=== PATIENT | female | born 1980 | race Caucasian/White ===

== ENCOUNTER → 2016-05-28 | Outpatient (CLI) | payer OTHER ==
[2016-01-04 19:33] VITALS: BP 129/78
[~2016-05-28] MED LIST: HYDR-79 PO; HYDR1TAB10 PO; METH-37 PO; ORPH100T PO
--- NOTE | 2016-05-28 15:28 | KCIC ---
PROCEDURE Pelvic ultrasound. HISTORY Menorrhagia. TECHNIQUE Transabdominal pelvic ultrasound was performed. Transvaginal imaging also was performed to better evaluate the endometrial stripe and adnexa. COMPARISON None. FINDINGS Uterus measures 8.8 x 5.9 by 4.0 centimeters in size. Endometrial stripe measures 3 millimeters. There is no uterine mass. Both ovaries are visualized with subcentimeter cysts or follicles present. Color flow for each ovary is documented. There is no free pelvic fluid. IMPRESSION Normal pelvic ultrasound. Electronically signed by: Brian Fuller MD (May 28, 2016 15:26:02)
== END | disposition home or self-care (01) ==
LOC: KCIC US 14:05
PROVIDERS: ATTEND Nurse Practitioner Family
DX: N92.0 Excessive and frequent menstruation with regular cycle (principal); N83.292 Other ovarian cyst, left side; N83.291 Other ovarian cyst, right side
CPT/HCPCS: 76830; 76856

== ENCOUNTER → 2016-07-18 | Outpatient (CLI) | payer OTHER ==
[2016-01-04 19:33] VITALS: BP 129/78
--- NOTE | 2016-07-19 08:21 | KCIC ---
PROCEDURE MRI lumbar spine without contrast. HISTORY Lumbar radiculopathy, low back pain, bilateral entire leg pain and stiffness getting worse TECHNIQUE Multiplanar, multi sequential non contrast MR imaging was performed of the lumbar spine. COMPARISON April 11, 2015 FINDINGS Lumbar vertebral body stature is preserved. AP alignment is unchanged, negligible posterior subluxation L5 relative to S1. There is again moderate to severe degenerative disc disease L5-S1, associated degenerative endplate change. There is again mild degenerative disc disease L4-5. Conus terminates normally at T12-L1. Nonspecific edema of the posterior subcutaneous fat of the lower back as seen previously. There is no significant marrow edema. There is posterior annular tear L5-S1. There is again mild levoscoliosis of the inferior lumbar spine. L3-4: Spinal canal and neural foramina are adequate. L4-5: There is mild facet degenerative change and buckling of the ligamentum flavum. Neural foramina and spinal canal are adequate. There is left posterolateral annular tear. L5-S1: There is again broad posterior protrusion more eccentric to the right lateral recess. There is again contact of the descending right S1 nerve root although no significant displacement posteriorly. There is mild right lateral recess stenosis. There is again mild narrowing of the right neural foramen, left neural foramen adequate. IMPRESSION 1. Findings are similar comparing with the 2014 exam. There is again degenerative disc disease greatest at what is considered L5-S1, protrusion at L5-S1 contacting the descending right S1 nerve root without significant displacement. There is similar mild narrowing of the right L5-S1 neural foramen. Electronically signed by: Harlan Miles MD (Jul 19, 2016 08:20:26)
== END | disposition home or self-care (01) ==
LOC: KCIC MRI 17:02
PROVIDERS: ATTEND Nurse Practitioner Family
DX: M48.06 Spinal stenosis, lumbar region (principal); M41.86 Other forms of scoliosis, lumbar region
CPT/HCPCS: 72148

== ENCOUNTER → 2016-09-03 | Outpatient (CLI) | payer OTHER ==
[2016-01-04 19:33] VITALS: BP 129/78
[~2016-09-03] MED LIST changes: +MELO-150 PO; +METF500T4 PO; +NORE1CAP PO; +OXYC5CAP3 PO; +TIZA4TAB PO; +TRAM50TA PO
[2016-09-03 09:47] LABS: BASO # 0.1 x10^3/uL (0.0-0.2); BASO % 1 % (0-3); EOS % 3 % (0-3); HEMATOCRIT 41.7 % (36.0-47.0); HEMOGLOBIN 14.1 g/dL (12.0-15.5); LYMPH # 2.8 x10^3/uL (1.0-4.8); LYMPH % 25 % (24-48); MEAN CORPUSCULAR HEMOGLOBIN 31 pg (25-35); MEAN CORPUSCULAR HGB CONC 34 g/dL (31-37); MEAN CORPUSCULAR VOLUME 92 fL (79-100); MONO % 5 % (0-9); NEUT % 67 % (31-73); PLATELET COUNT 281 x10^3/uL (140-400); RED BLOOD COUNT 4.56 x10^6/uL (3.50-5.40); RED CELL DISTRIBUTION WIDTH 13.5 % (11.5-14.5); WHITE BLOOD COUNT 11.2 x10^3/uL (4.0-11.0)
[2016-09-03 10:08] LABS: ALBUMIN 2.9 g/dL (3.4-5.0); ALBUMIN/GLOBULIN RATIO 0.7 (1.0-1.7); CALCIUM 8.8 mg/dL (8.5-10.1); CREATININE 0.8 mg/dL (0.6-1.0); GFR 82.6; POTASSIUM 4.3 mmol/L (3.5-5.1); TOTAL BILIRUBIN 0.2 mg/dL (0.2-1.0); TOTAL PROTEIN 7.2 g/dL (6.4-8.2)
[2016-09-03 10:10] LABS: INR 0.9 (0.8-1.1)
== END | disposition home or self-care (01) ==
LOC: SURGPAT 08:26
PROVIDERS: ATTEND Neurological Surgery
DX: Z01.812 Encounter for preprocedural laboratory examination (principal)
CPT/HCPCS: 36415; 80053; 85027; 85610; 85730; 87641

== ENCOUNTER 2016-09-04 06:55 | Day surgery (SDC) | payer OTHER ==
[~2016-09-04 06:55] MED LIST changes: +BACITRACIN 50,000 UNIT in IV NORMAL SALINE 1000ML BAG 1,000 ML IRR ONE
[2016-09-04] MEDS ORDERED: GELATIN SPONGE SIZE 100. ONE (06:56)
[2016-09-04] MEDS ORDERED: LIDOCAINE 1%/EPI 1:100,000 20 ML VIAL. ONE (06:56)
[2016-09-04] MEDS ORDERED: BUPIVACAINE 0.5% 50 ML VIAL. ONE (06:56)
[2016-09-04] MEDS ORDERED: THROMBIN TOPICAL 20,000 UNIT SPRAY.SYRN KIT TP ONE (06:56)
[2016-09-04] MEDS ORDERED: PROCHLORPERAZINE 10 MG/2 ML VIAL. IV PRN (07:00)
[2016-09-04] MEDS ORDERED: IV RINGERS,LACTATED 1000ML 1,000 ML IV SCH (07:00)
[2016-09-04] MEDS ORDERED: ONDANSETRON PF 4 MG/2 ML VIAL. IV PRN (07:00)
[2016-09-04] MEDS ORDERED: fentaNYL PF VIAL 100 MCG/2 ML VIAL IV PRN (07:00)
[2016-09-04] MEDS ORDERED: LIDOCAINE 1% 1 ML SYRINGE. ID PRN (07:00)
[2016-09-04] MEDS ORDERED: HYDROmorphone 2 MG/ML VIAL IV PRN (07:00)
[2016-09-04 07:52] LABS: NEG OBC UR NEG; POS OBC UR POS
[2016-09-04] MEDS ORDERED: DESFLURANE > 120 MINUTES IH ONE (07:59)
[2016-09-04] MEDS ORDERED: fentaNYL PF VIAL 100 MCG/2 ML VIAL ONE ×2 (08:00→08:08)
[2016-09-04] MEDS ORDERED: ROCURONIUM 50 MG/5 ML VIAL. ONE (08:00)
[2016-09-04] MEDS ORDERED: MIDAZOLAM HCL/PF 2 MG/2 ML VIAL. ONE (08:00)
[2016-09-04] MEDS ORDERED: REMIFENTANIL 2 MG VIAL. IV ONE ×2 (08:00→08:07)
[2016-09-04] MEDS ORDERED: DEXAMETHASONE SOD PHOS 20 MG/5 ML VIAL. ONE (08:01)
[2016-09-04] MEDS ORDERED: LIDOCAINE 2% 100 MG/5 ML SYRINGE. ONE (08:01)
[2016-09-04] MEDS ORDERED: ONDANSETRON PF 4 MG/2 ML VIAL. ONE (08:01)
[2016-09-04] MEDS ORDERED: MINERAL OIL/PETROLATUM,WHITE OPHTH OINT 3.5GM TUBE. ONE (08:01)
[2016-09-04] MEDS ORDERED: PROPOFOL 20 ML IV ONE (08:01)
[2016-09-04] MEDS ORDERED: 0.9 % SODIUM CHLORIDE 50 ML VIAL. IJ ONE ×2 (08:03→11:03)
[2016-09-04] MEDS ORDERED: PROPOFOL 100 ML IV ONE (08:05)
[2016-09-04] MEDS ORDERED: PHENYLEPHRINE 10 MG/ML VIAL. ONE (09:34)
[2016-09-04] MEDS ORDERED: GLYCOPYRROLATE 1 MG/5 ML VIAL. ONE (10:01)
[2016-09-04] MEDS ORDERED: PROPOFOL 50 ML IV ONE (11:11)
--- NOTE | 2016-09-04 12:13 | PDOC ---
BRIEF OPERATIVE NOTE Date: September 04, 2016 Pre-Op Diagnosis lumbar radiculopathy, herniated disk L5-S1 Post-Op Diagnosis same Procedure Performed right L5-S1 hemilaminotomy with discectomy Surgeon Lauren Inspector [employer]arms none Anesthesia Type: General Blood Loss 100mL Specimens Obtained disk and decompression Findings prominent disk herniation, calcified disk material Complications none apparent Additional Remarks neuromonitoring remained at least baseline throughout the procedure YOLETTE GALAN MD September 04, 2016 12:13
--- NOTE | 2016-09-04 12:17 | DISCH ---
DISCHARGE INSTRUCTIONS Condition on Discharge Condition on Discharge: Stable Activity After Discharge Activity Instructions for Disc: Avoid exertion, Progressive ambulation, Other, see below (avoid strenuous activity, avoid excess bending or twisting, no lifting over 10lbs) Lifting Instructions after Dis: Do not lift >10 pounds Driving Instructions after Dis: No driving for 2 weeks Wound Incision Care Wound/Incision Care: Other, see below (may remove dressing day 3 after surgery ; keep incision clean and dry; do not soak, scrub, or submerge incision) Contacting the after DC Call your doctor for: Concerns you may have Follow-Up Follow up with: Dr. Galan neurosurgery in two weeks [phone] YOLETTE GALAN MD September 04, 2016 12:17
[2016-09-04] MEDS: fentaNYL PF VIAL 100 MCG/2 ML VIAL IV PRN ×4 (12:24→12:44)
[2016-09-04] MEDS: MORPHINE SULFATE 2 MG/ML DISP.SYRIN. IV PRN ×4 (12:47→13:24)
[2016-09-04] MEDS ORDERED: OXYCODONE IR 5 MG TABLET. PO PRN (13:45)
[2016-09-04 13:46] VITALS: BP 123/60
--- NOTE | 2016-09-04 19:10 | OP ---
DATE OF SURGERY: 09/04/2016 SURGEON: Theodore Galan MD. WOOLING MACHINE OPERATOR: None. PREOPERATIVE DIAGNOSIS: Lumbar disk herniation with lumbar radiculopathy. POSTOPERATIVE DIAGNOSIS: Lumbar disk herniation with lumbar radiculopathy. PROCEDURE: Right lumbar 5 and sacral 1 hemilaminotomy with diskectomy with intraoperative use of microscope and intraoperative neuromonitoring. ANESTHESIA: General. COMPLICATIONS: None intraprocedurally. INDICATIONS FOR THE PROCEDURE: The patient is a 35-year-old female who has a history of right greater than left lower extremity pain and was noted to have lumbosacral disk herniation at L5-S1, slightly more prominent to the right. She has been refractory to multiple nonsurgical treatments, and it was felt that surgical decompression maybe of benefit. Please refer to the patient's chart for additional details. DESCRIPTION OF PROCEDURE: After informed consent was obtained, the patient was brought into the operating room. She was placed under general anesthesia, was placed in the prone position on the Carrillo table. All pressure points were checked and padded appropriately. Lumbar region was prepped and draped in the usual sterile fashion. Appropriate incision location was verified with fluoroscopy, and a vertical incision was made centered over the region of lumbar 5-sacral 1. Monopolar electrocautery was utilized to dissect the avascular midline to the spinous processes at this location and rightward across the lamina at this location. Level was verified with fluoroscopy prior to the initiation of decompression. A right hemilaminotomy was performed at the inferior aspect of lumbar 5 with a pneumatic drill as well as Kerrison rongeur. The underlying ligament was gently dissected away from the thecal sac with a Reno and removed with the Kerrison rongeur, and prominent annulus was identified at the disk space of this region, and a small annulotomy was performed with an 11-blade scalpel. ____ was performed. Blunt nerve hook was utilized to gently tease disk material posterolaterally into the lateral recesses. This was subsequently removed with a pituitary rongeur. Portions of disks were noted to be significantly calcified. A plane was developed between the thecal sac, and the annulus and a Carrol as well as a down-biting curette was utilized to the tease this material anteriorly into the disk space and laterally for removal of disk material with a pituitary rongeur. The adjacent nerve root was identified, and disk material was noted around this structure as well. This was gently removed with a blunt nerve hook and a pituitary rongeur. Upon completion of the decompression and diskectomy, the neural elements were noted to be very well decompressed. This was verified with direct visualization as well as gentle palpation with a Reno and a Beckham ball probe. Neuromonitoring potentials were noted to be at least baseline throughout the entire duration of the procedure. Pristine hemostasis was achieved with FloSeal, cottonoids, gentle irrigation, and some use of bipolar electrocautery. The wound was generously irrigated with antibiotic irrigation prior to the final closure. The muscles and fascia were then reapproximated with 0 Vicryl in a simple interrupted fashion. Subcutaneous tissues were reapproximated with 2-0 Vicryl in an interrupted inverted fashion, and the skin was reapproximated with 4-0 Vicryl in a running subcuticular fashion. Mastisol and Steri-Strips were applied, and the wound was dressed with Telfa and Tegaderm. At the end of the procedure, all needle and sponge counts were correct x 2. The patient was extubated in the operating room and taken to recovery in stable condition. There were no intraprocedural complications apparent. THEODORE GALAN MD DR: MIHIR/janiya JOB#: [id number] / [id number]
--- NOTE | 2016-09-05 17:00 | PATHOLOGY ---
PATHOLOGY REPORT * * * * * * * * FINAL DIAGNOSIS: Segments of fibrocartilaginous, fibroadipose, and skeletal muscle tissue and bone, lumbar disc and decompression: - Focal degenerative changes of fibrocartilaginous tissue. COMMENT: There is no evidence of an acute inflammatory process or malignancy. (JPM:csd; d/t: 09/05/2016) REPORT ELECTRONICALLY SIGNED BY: Tin Bahena M.D. DATE/TIME: 09/05/2016 16:59 * * * * * * * * GROSS PATHOLOGY: Received in formalin labeled "Andrea Campo, lumbar disc and decompression" are multiple segments of hirsch, rubbery, and gritty tissue admixed with bone. The specimen measures 5.8 x 5.7 x 0.9 cm in aggregate dimensions. The tissue is submitted representatively in cassette A1, following decalcification. (CAA; 09/04/2016) INITIAL CPT CODE(S): A; 49083, 55569 Professional services performed [place] [facility] [place] [address] Technical services performed by [facility] at [address] [place] [address] [address], [place] [address]. SPECIMEN(S) RECEIVED: A.Lumbar disc and decompression CLINICAL HISTORY: Lumbar herniated disc PATIENT: ANDREA CAMPO /AGE: 509/25/1980 (Age: 35) PATIENT #: [id number] ALT CASE #: SPECIMEN COLLECTION DATE: 09/04/2016 SPECIMEN RECEIVED DATE: 09/04/2016 [facility] - [address] [place] [address] - PHONE: [phone] * * * END OF REPORT * * *
== END 2016-09-04 14:20 | disposition home or self-care (01) ==
LOC: SURG 06:55
PROVIDERS: ATTEND Neurological Surgery
DX: M51.16 Intervertebral disc disorders with radiculopathy, lumbar region (principal); E66.9 Obesity, unspecified; E11.9 Type 2 diabetes mellitus without complications; F41.9 Anxiety disorder, unspecified; F32.9 Major depressive disorder, single episode, unspecified; Z72.89 Other problems related to lifestyle; Z72.0 Tobacco use; Z90.49 Acquired absence of other specified parts of digestive tract
CPT/HCPCS: 63030; 76000; 81025; 82947; 88304; 88311; J0690; J0780; J1100; J2250; J2270; J2405; J2704; J3010; J3490; J7030; J7120

== ENCOUNTER → 2016-10-15 | Day surgery (SDC) | payer OTHER ==
[~2016-10-15] MED LIST changes: -BACITRACIN 50,000 UNIT in IV NORMAL SALINE 1000ML BAG 1,000 ML IRR ONE; +BENZOCAINE ONE 20% MUCOSAL SPRAY.; +HYDROmorphone 2 MG/ML VIAL IV PRN; +IV RINGERS,LACTATED 1000ML 1,000 ML IV SCH; +LIDOCAINE 1% 1 ML SYRINGE. ID PRN; +LIDOCAINE 2% TOPICAL JELLY 30GM TUBE. TP ONE; +LIDOCAINE 2% VISCOUS 15 ML SOLUTION. ONE; -MELO-150 PO; +MELO15TA23 PO; +METH-38 PO; +MORPHINE SULFATE 2 MG/ML DISP.SYRIN. IV PRN; +ONDANSETRON PF 4 MG/2 ML VIAL. IV PRN; +OXYC5CAP PO; -OXYC5CAP3 PO; +PROCHLORPERAZINE 10 MG/2 ML VIAL. IV PRN; +PROPOFOL 40 ML IV ONE; +fentaNYL PF VIAL 100 MCG/2 ML VIAL IV PRN
[2016-10-15 08:01] LABS: NEG OBC UR NEG; POS OBC UR POS
[2016-10-15 10:04] VITALS: BP 137/66
--- NOTE | 2016-10-15 13:28 | CARD ---
APPROVED REPORT EXAM: Two-dimensional and M-mode echocardiogram with Doppler and color Doppler. INDICATION RV MASS Reason For Test : RV MASS PROCEDURE Type of Sedation : Conscious Sedation Sedation was provided by anesthesiologist, see EMR for medications administered. The KARIME was performed without complications. Throughout the procedure, the blood pressure, pulse oximetry, cardiac rhythm, and rate were monitored . The patient tolerated the procedure without adverse effects. Recovery from conscious sedation was une ventful and vital signs were stable. LEFT VENTRICLE The left ventricle is normal size. There is mild concentric left ventricular hypertrophy. The left ve ntricular systolic function is normal. The Ejection Fraction is 60-65%. There is normal LV segmental wall motion. RIGHT VENTRICLE The right ventricle is normal size. There is normal right ventricular wall thickness. The right ventr icular systolic function is normal. There is a mass measuring up to 3.0 x 2.8 x 2.8cm. in the right v entricular apex. Previously, the 08/28/2016 transthoracic echocardiogram documented this mass at 3.4 c m. and does not appear that it has significantly changed in shape or dimension. This mass appears to be attached to septal wall of the right ventricle in the apex level. ATRIA The left atrium size is normal. The right atrium size is normal. The interatrial septum is intact wit h no evidence for an atrial septal defect or patent foramen ovale as noted on 2-D or Doppler imaging. AORTIC VALVE The aortic valve is trileaflet. Doppler and Color Flow revealed no significant aortic regurgitation. There is no significant aortic valvular stenosis. MITRAL VALVE There is no evidence of mitral valve prolapse. There is no mitral valve stenosis. Doppler and Color F low revealed no mitral valve regurgitation noted. TRICUSPID VALVE Doppler and Color Flow revealed trace tricuspid regurgitation. There is no pulmonary hypertension. PULMONIC VALVE Doppler and Color Flow revealed trace pulmonic valvular regurgitation. There is no pulmonic valvular stenosis. GREAT VESSELS The aortic root is normal in size. The ascending aorta is normal in size. The IVC is normal in size a nd collapses >50% with inspiration. PERICARDIAL EFFUSION There is no evidence of significant pericardial effusion. Critical Notification Critical Value: No <Conclusion> The left ventricular systolic function is normal. The Ejection Fraction is 60-65%. There is normal LV segmental wall motion. There is a mobile mass measuring up to 3.0 x 2.8 x 2.8cm. 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 Doppler and Color Flow revealed trace tricuspid regurgitation. There is no evidence of significant pericardial effusion.
== END | disposition home or self-care (01) ==
LOC: SURG 07:39
PROVIDERS: ATTEND Internal Medicine Cardiovascular Disease
DX: I07.1 Rheumatic tricuspid insufficiency (principal); E66.9 Obesity, unspecified; E11.9 Type 2 diabetes mellitus without complications; F41.9 Anxiety disorder, unspecified; F32.9 Major depressive disorder, single episode, unspecified; Z86.69 Personal history of other diseases of the nervous system and sense organs; Z90.49 Acquired absence of other specified parts of digestive tract; Z86.39 Personal history of other endocrine, nutritional and metabolic disease; Z72.0 Tobacco use; Z88.6 Allergy status to analgesic agent; Z88.8 Allergy status to other drugs, medicaments and biological substances
CPT/HCPCS: 81025; 93312; 93325; J2704

== ENCOUNTER → 2016-12-18 | Outpatient (CLI) | payer OTHER ==
[2016-10-15 10:04] VITALS: BP 137/66
[~2016-12-18] MED LIST changes: -BENZOCAINE ONE 20% MUCOSAL SPRAY.; +GADOBUTROL 10 MMOL/10 ML VIAL IV ONE; -HYDROmorphone 2 MG/ML VIAL IV PRN; -IV RINGERS,LACTATED 1000ML 1,000 ML IV SCH; -LIDOCAINE 1% 1 ML SYRINGE. ID PRN; -LIDOCAINE 2% TOPICAL JELLY 30GM TUBE. TP ONE; -LIDOCAINE 2% VISCOUS 15 ML SOLUTION. ONE; -MORPHINE SULFATE 2 MG/ML DISP.SYRIN. IV PRN; -ONDANSETRON PF 4 MG/2 ML VIAL. IV PRN; -PROCHLORPERAZINE 10 MG/2 ML VIAL. IV PRN; -PROPOFOL 40 ML IV ONE; -fentaNYL PF VIAL 100 MCG/2 ML VIAL IV PRN
--- NOTE | 2016-12-18 10:31 | KCIC ---
MR LUMBAR SPINE WITH CONTRAST HISTORY: Right hip and leg pain COMPARISON: MR lumbar spine from July 18, 2016 Technique: Sagittal T2, sagittal STIR, and sagittal T1-weighted images were obtained. Additional axial T1 and T2 weighted imaging was also performed. Sagittal and axial T1-weighted images were obtained after the administration of gadolinium based intravenous contrast material FINDINGS: Alignment and curvature are within normal limits. There is no compression fracture or deformity. There has been performance of a right hemilaminectomy at L5-S1. The previously noted disc protrusion remains present and continues to cause some mass effect upon the descending right S1 nerve. There is also some enhancement in the right foramen which could represent granulation tissue. Correlate for right L5 or S1 radiculopathy symptoms. The remaining disc spaces are well-maintained. IMPRESSION: Postoperative changes from right hemilaminectomy. There is a persistent disc protrusion causing mass effect upon the right S1 nerve in the lateral recess. There has also been development of some enhancing tissue in the right foramen which could represent granulation tissue. This cannot be classified as fibrosis since the procedure has been relatively recent. Correlate for right S1 or L5 radiculopathy symptoms. Electronically signed by: Buddy Holder MD (12/18/2016 10:28 AM) [place] [id number]
--- NOTE | 2016-12-18 12:09 | KCIC ---
MRI study of the right hip with and without contrast Clinical indications: Right hip pain and lumbar radiculopathy. TECHNIQUE: Pre and postcontrast enhanced MRI sequences of the right hip was performed in all 3 planes. A total of 10 cc of Gadavist was given intravenously. COMPARISON: No previous MRI study of the right hip available. FINDINGS: No marrow infiltrative process or bone contusion or fracture or bone marrow edema or avascular necrosis is seen. There is mild degenerative spurring of the right femoral head. No significant joint space narrowing or articular cartilage defect is seen. The acetabular labrum is intact. No paralabral ganglion cyst is seen. No significant right hip joint effusion is seen. No abnormal synovial enhancement is seen. No loose osteochondral body is evident. The iliopsoas tendon is intact and no iliopsoas bursitis is seen. The conjoined hamstring tendon is intact and no ischial tuberosity bursitis is seen. There is mild tendinosis of the gluteus grisel tendon at the level of the greater trochanter. There is mild tendinosis of the gluteus minimus tendon at the level of the greater trochanter. No greater trochanteric bursitis is seen. No muscle edema is evident. No soft tissue mass or abscess is seen. No abnormal soft tissue enhancement is seen. Coronal STIR sequence of both hips was performed for comparison. No avascular necrosis of the opposite left femoral head is seen. No marrow edema of the upper portion of the sacrum is seen on either side. Incidental note is made of a 2.1 cm right ovarian cyst. IMPRESSION: Mild tendinosis of the gluteus grisel and gluteus minimus tendons. Mild degenerative spurring of the right femoral head without significant joint effusion. No enhancing synovitis of the right hip joint is seen. No other significant MRI abnormality of the right hip is seen otherwise. Electronically signed by: Fernie Marques MD (12/18/2016 12:06 PM) [facility]-KC[facility]
== END | disposition home or self-care (01) ==
LOC: KCIC MRI 07:59
PROVIDERS: ATTEND Neurological Surgery
DX: M54.16 Radiculopathy, lumbar region (principal); M25.551 Pain in right hip
CPT/HCPCS: 72158; 73723; 82565; A9585

== ENCOUNTER → 2017-01-18 | Outpatient (CLI) | payer OTHER ==
[2016-10-15 10:04] VITALS: BP 137/66
[~2017-01-18] MED LIST changes: -GADOBUTROL 10 MMOL/10 ML VIAL IV ONE
--- NOTE | 2017-01-18 13:28 | PAIN ---
DATE OF SERVICE: 01/18/2017 CHIEF COMPLAINT: Low back and right lower extremity pain. HISTORY OF PRESENT ILLNESS: This is a 36-year-old female who presents with history of pain for about 5 years, low back, right lower extremity, sometimes in the left, mostly in the right. The patient had a lumbar laminectomy and partial diskectomy at L5-S1 in September of this year about 4 months ago. The patient reports that she did well initially, but the pain returned fairly quickly several weeks after the surgery, again low back and right leg, posterior gluteus, posterior thigh, posterior calf, radiating in an L5-S1 distribution on the right side, occasionally in L5 especially on the left but almost always on the right. The patient reports it awakens her from sleep about 3-4 times a night, it does not affect her bowel or bladder control, it does not affect her ability to walk. She is not using any assisted devices; however, she has tried physical therapy and did 6 weeks of this following in the last month and a half which helped a very small amount and was becoming more difficult towards the end of the therapy. She is still doing some exercises at home and continues to do these with some stretching which she feels helps her back to some extent. She has been taking tramadol as well as oxycodone which is not helping the pain significantly, also [id number] ibuprofen which is not significantly helpful as well. The patient reports her disability rate from 0-10, 10 being the worst; is 9 with family and home responsibilities, occupation; 8 with sexual behaviors, self-care and life support activities; 6 with social activity and recreation. The patient did have her MRI scan since her surgery dated 10/18/2016 showing postoperative changes and right hemilaminectomy with persistent disk protrusion causing mass affect in the right S1 nerve root and lateral recess with some enhancing granulation tissue in the region as well. The patient reports no loss of motor function but significant fatigability of the right leg especially with walking and standing when the pain at its worse. The patient describes it as constant, stabbing, throbbing, shooting with some numbness and tingling, radiating to the right leg, is described with burning and cramping activity as well, better with sitting down. With lying down, it does awaken her from sleep, so she is laid on her right side. PAST MEDICAL HISTORY: Significant for type 2 diabetes, diet controlled, arthritis and cigarette smoking. PAST SURGICAL HISTORY: Include a left knee surgery 2004, laparoscopic cholecystectomy 2008, endometrial ablation 2010, ovarian cyst excision 2010, right carpal tunnel repair 2013 and recent L5-S1 laminectomy with diskectomy. CURRENT MEDICATIONS: Include only the tramadol, oxycodone, ibuprofen [id number]. ALLERGIES: The patient is allergic to GABAPENTIN and TYLENOL. FAMILY HISTORY: Significant for no major medical problems or conditions that she is aware of as she was adopted. SOCIAL HISTORY: The patient does not drink alcohol, smokes about 1 pack of cigarettes a day for the past 20 years, uses marijuana occasionally. The patient is single, has 1 child living at home with her and lives locally in [place], [place]. REVIEW OF SYSTEMS: The patient's review of systems is positive for those items mentioned in history of present illness. All systems reviewed, otherwise negative. It is complete, full and well documented on the patient's chart. PHYSICAL EXAMINATION: VITAL SIGNS: The patient's blood pressure 128/89, pulse 77, respirations 18, temperature 98.2 degrees Fahrenheit. Height is 5 feet 5 inches, weighs 241 pounds. GENERAL: The patient is awake, alert, oriented, appropriate, very pleasant demeanor. HEENT: Head shows normocephalic, atraumatic. Extraocular movements are intact and symmetrical. Oral cavity shows mucous membranes moist and pink. Dentition is intact. NECK: Shows anterior throat supple without palpable lymphadenopathy noted. Swallow reflex is symmetrical. CHEST: Shows normal on inspection. Breath sounds are clear to auscultation bilaterally. HEART: Shows S1 and S2 clear. No murmurs auscultated. ABDOMEN: Obese, soft, nontender, nondistended. No palpable organomegaly is noted. No rebound or guarding demonstrated. BACK: Shows spine grossly midline. Normal-appearing thoracic kyphosis and there is some mild flattening of lumbar lordotic curvature. Lumbar paraspinous musculature shows symmetrical on expansion. The patient has well-healed small surgical scar in the lower lumbar distribution of midline. With palpation, paraspinous musculature shows some mild tenderness but only diffusely throughout the upper, middle and lower distribution essentially same right and left. No tenderness over the sacrum or sacroiliac regions. The patient shows good rotation and motion of lumbar spine both laterally greater than 10 degrees right and left as well as extension greater than 10 degrees, forward flexion 45 degrees without significant pain reported. EXTREMITIES: The patient's lower extremities showed deep tendon reflexes at 1+ in the patellar and tendo calcaneus tendons are equal. Motor exam is strong with 5/5 dorsiflexion, extension, quadriceps, hamstring flexion and symmetrical and equal as well. Peripheral pulses are 1+ posterior tibial, dorsalis pedis pulses. No peripheral edema is noted. No clubbing, no cyanosis. Lower extremities are warm and dry with appearance. Straight leg raise noted to be mildly positive on the right at about 35-40 degrees, left side is negative. Gaenslen's and Biju's maneuvers are grossly negative bilaterally. The patient is able to stand, stand on her toes without difficulty or loss of balance, walks with a normal-appearing gait, does not appear to favor the right or left lower extremity significantly and not using any assistive devices to ambulate. IMPRESSION: 1. This is a 36-year-old female with long history of low back and right radicular pain with recent lumbar laminectomy with persistent radicular pain on the right side in L5-S1 distribution. 2. MRI scan of lumbar spine as noted. 3. Borderline diabetes. 4. Cigarette smoking. PLAN: Options were discussed with the patient including conservative medical management, continued physical therapy, interventional techniques and that she has had physical therapy and is still doing exercises on her own with pain increasing. We discussed a lumbar epidural steroid injection with caudal approach. The patient would like to proceed with this. We will wait for preauthorization from the patient's insurance provider and proceed with that on her next visit. The patient was given her Medrol Dosepak prescription with instructions and side effects to be aware of discussed in the meantime. We will try this in the interim. PREMA WHATLEY MD DR: SONA/janiya JOB#: [id number] / [id number] DONALD Crowder APRN
== END | disposition home or self-care (01) ==
LOC: PNCL 08:45
PROVIDERS: ATTEND Anesthesiology
DX: M54.16 Radiculopathy, lumbar region (principal); M79.604 Pain in right leg
CPT/HCPCS: 99214

== ENCOUNTER → 2017-02-06 | Outpatient (CLI) | payer OTHER ==
[2016-10-15 10:04] VITALS: BP 137/66
[~2017-02-06] MED LIST changes: +IOHEXOL 180 MG/ML 10 ML VIAL. ONE; +methylPREDNISolone ACETATE 40 MG/ML VIAL. ONE; +methylPREDNISolone ACETATE 80 MG/ML VIAL. ONE
--- NOTE | 2017-02-06 13:27 | PAIN ---
DATE OF SERVICE: 02/06/2017 DIAGNOSES: Lumbar radiculopathy with lumbar degenerative disk disease and post-lumbar laminectomy syndrome. HISTORY OF PRESENT ILLNESS: The patient is a 36-year-old female who returns for followup status post initial evaluation and preauthorization for lumbar caudal approach epidural steroid injection. The patient returns today reporting still significant pain in low back, right lower extremity as well as previously mostly in the posterior gluteus, posterior thigh radiating to the leg and foot, some on the left side as well, but mostly on the right. It reaches 10 on scale of 10 at its worst and 8 at its average and about a 6 at its least and 6 today. The patient reports aching, shooting, tingling, burning and becoming more constant. The patient reports no new motor or sensory deficits, no new bowel or bladder incontinence. The patient reports Medrol Dosepak helped some while she was taking it, but the pain returned afterward. The patient reports it awakens her from sleep about 2-3 times a night. She sleeps about 3-4 hours at a time. She needs reposition and get back to sleep. The patient reports no new motor or sensory deficits, no new bowel or bladder incontinence or other complaints. PHYSICAL EXAMINATION: VITAL SIGNS: The patient's blood pressure is 140/86, pulse 99, respirations are 16, temperature is 97.6 degrees Fahrenheit, height is 5 feet 5 inches, weight is 242 pounds. GENERAL: The patient is awake, alert, oriented, appropriate, very pleasant demeanor. HEENT: Head shows normocephalic, atraumatic. Extraocular movements are intact and symmetrical. Oral cavity: Mucous membranes are moist and pink. Dentition is intact. NECK: Shows anterior throat supple without palpable lymphadenopathy noted. Swallow reflex is symmetrical. CHEST: Shows normal on inspection. Breath sounds are clear to auscultation bilaterally. HEART: Shows S1 and S2 clear. ABDOMEN: Obese, soft, nontender, nondistended. BACK: Shows spine grossly in midline. Lumbar paraspinous musculature shows a well-healed surgical scar in the midline. Paraspinous muscles themselves with palpation are moderately tender with palpation in the middle and lower distribution, but only diffusely without radiation. No tenderness over the sacrum or sacroiliac regions. EXTREMITIES: Lower extremities show deep tendon reflexes at 1+ in the patellar and tendo calcaneus tendons. Motor exam is 5/5 with dorsiflexion, extension and equal. Options were discussed with the patient and the patient's old chart was reviewed as her current medication regimen updated. Current review of systems is updated today as well. We will proceed with a caudal approach epidural steroid injection today with fluoroscopic guidance. Risks were again discussed including, but not limited to bleeding, infection, possibility of epidural hematoma, subsequent neurologic compromise, dural puncture, headaches, spinal cord and/or nerve damage, side effects of steroid medication and poor results regarding pain control. The patient understands and wishes to proceed. The patient will return to clinic in approximately 2 weeks for followup, was counseled on return appointment, activity level and side effects to be aware of. DIAGNOSIS: Lumbar radiculopathy with lumbar degenerative disk disease and post-lumbar laminectomy syndrome. PROCEDURE: Lumbar caudal approach epidural steroid injection using C-arm fluoroscopic guidance under sterile prep and drape using local anesthetic. MEDICATIONS INJECTED: A total of 120 mg Depo-Medrol plus 10 mL preservative free normal saline, 2 mL of Isovue for contrast. CONDITION AT DISCHARGE: Stable. The patient tolerated procedure well, had no complications. PREMA WHATLEY MD DR: SONA/janiya JOB#: [id number] / [id number]
== END | disposition home or self-care (01) ==
LOC: PNCL 10:06
PROVIDERS: ATTEND Anesthesiology
DX: M51.16 Intervertebral disc disorders with radiculopathy, lumbar region (principal); M96.1 Postlaminectomy syndrome, not elsewhere classified; E66.9 Obesity, unspecified; E11.9 Type 2 diabetes mellitus without complications; F41.9 Anxiety disorder, unspecified; F32.9 Major depressive disorder, single episode, unspecified; F17.200 Nicotine dependence, unspecified, uncomplicated; Z86.69 Personal history of other diseases of the nervous system and sense organs; Z90.49 Acquired absence of other specified parts of digestive tract; Z87.39 Personal history of other diseases of the musculoskeletal system and connective tissue; Z72.0 Tobacco use; Z86.39 Personal history of other endocrine, nutritional and metabolic disease; Z88.6 Allergy status to analgesic agent
CPT/HCPCS: 62323; J1030; J1040

== ENCOUNTER → 2017-02-20 | Outpatient (CLI) | payer OTHER ==
[2016-10-15 10:04] VITALS: BP 137/66
[~2017-02-20] MED LIST changes: +IBUP-1060 PO; +NAPR500T8 PO
--- NOTE | 2017-02-20 12:08 | PAIN ---
DATE OF SERVICE: 02/20/2017 DIAGNOSIS: Lumbar radiculopathy with lumbar degenerative disk disease and post-lumbar laminectomy syndrome. HISTORY OF PRESENT ILLNESS: The patient is a 36-year-old female who returns for followup status post lumbar epidural steroid injections caudal approach x 1. The patient reports 75% improvement, but only for the first day or so after the injection. The patient reports after that the pain returned rapidly to its baseline in the low back and bilateral lower extremity, slightly more on the right than the left; and the posterior hip and low back, radiating to posterior gluteus, posterior thighs, posterior calves, essentially equal right and left. The patient reports it is a 10 on a scale of 10 at its worst, is 8 on average and 6 on a scale of 10 at its least and is a 7 on a scale 10 today. The patient reports it is aching, shooting, tingling, cramping, stabbing and constant. Again, helped for 1 day or so but then pain returned fairly quickly. The patient reports it is awakening her from sleep now, around 3 or 4 hours, she has to reposition or take pain medication to get back to sleep. PHYSICAL EXAMINATION: VITAL SIGNS: Today, the patient's blood pressure is 118/79, pulse 78, respirations 16, temperature 98.6 degrees Fahrenheit, height is 5 feet 5 inches, weighs 239 pounds. GENERAL: The patient is awake, alert, oriented, appropriate, very pleasant demeanor. HEENT: Head shows normocephalic, atraumatic. Extraocular movements are intact and symmetrical. Oral cavity shows mucous membranes are moist and pink. Dentition is intact. NECK: Shows anterior throat supple without palpable lymphadenopathy noted. Swallow reflex is symmetrical. CHEST: Shows normal on inspection. Breath sounds clear to auscultation bilaterally. HEART: Shows S1 and S2 clear. No murmurs auscultated. ABDOMEN: Obese, soft, nontender, nondistended. BACK: Shows spine grossly in midline. Well healed surgical scars noted in the lumbar distribution in the midline. Lumbar paraspinous musculature is symmetrical, but only mildly firm with palpation, only mildly tender with palpation bilaterally without radiation. The patient shows good rotational motion of the lumbar spine, both laterally as well as extension and flexion. EXTREMITIES: Lower extremities showed deep tendon reflexes 1+ in the patellar and tendo calcaneus tendons. Motor exam is strong with 5/5 dorsiflexion, extension, quadriceps and hamstring flexion and equal. Options were discussed with the patient and the patient's old chart was reviewed as her current medication regimen updated. Current review of systems updated today as well. We will proceed with a second in the series caudal approach epidural steroid injection today with fluoroscopic guidance. Risks were again discussed including, but not limited to bleeding, infection, possibility of epidural hematoma, subsequent neurologic compromise, dural puncture, headaches, spinal cord and/or nerve damage, side effects of steroid medication and poor results regarding pain control. The patient understands and wishes to proceed. The patient will return to clinic in approximately 2 weeks for followup. She was counseled on return appointment, activity level and side effects to be aware of. DIAGNOSIS: Lumbar radiculopathy with lumbar degenerative disk disease and post-lumbar laminectomy syndrome. PROCEDURE: Caudal approach epidural steroid injection using C-arm fluoroscopic guidance under sterile prep and drape using local anesthetic. MEDICATION INJECTED: A total of 120 mg Depo-Medrol plus 10 mL of preservative-free normal saline and 2 mL of Isovue for contrast. CONDITION AT DISCHARGE: Stable. The patient tolerated procedure well, had no complications. PREMA WHATLEY MD DR: SONA/nts JOB#: [id number] / [id number]
== END | disposition home or self-care (01) ==
LOC: PNCL 09:52
PROVIDERS: ATTEND Anesthesiology
DX: M51.16 Intervertebral disc disorders with radiculopathy, lumbar region (principal); M96.1 Postlaminectomy syndrome, not elsewhere classified; G43.909 Migraine, unspecified, not intractable, without status migrainosus; Z88.6 Allergy status to analgesic agent; F41.9 Anxiety disorder, unspecified; E66.9 Obesity, unspecified; F17.200 Nicotine dependence, unspecified, uncomplicated; E11.9 Type 2 diabetes mellitus without complications; Z86.69 Personal history of other diseases of the nervous system and sense organs; Z87.39 Personal history of other diseases of the musculoskeletal system and connective tissue
CPT/HCPCS: 62323; J1030; J1040

== ENCOUNTER → 2017-05-01 | Outpatient (CLI) | payer OTHER | END | disposition home or self-care (01) | LOC: PNCL 10:17 | DX: M51.16 Intervertebral disc disorders with radiculopathy, lumbar region (principal); R53.1 Weakness | CPT/HCPCS: 99212 ==

== ENCOUNTER → 2017-05-15 | Outpatient (CLI) | payer OTHER ==
[~2017-05-15] MED LIST changes: -HYDR-79 PO; -HYDR1TAB10 PO; -IBUP-1060 PO; +IOHEXOL 180 MG/ML 10 ML VIAL.; -IOHEXOL 180 MG/ML 10 ML VIAL. ONE; -MELO15TA23 PO; -METF500T4 PO; -METH-37 PO; -METH-38 PO; -NAPR500T8 PO; -NORE1CAP PO; -ORPH100T PO; -OXYC5CAP PO; -TIZA4TAB PO; -TRAM50TA PO; +methylPREDNISolone ACETATE 40 MG/ML VIAL.; -methylPREDNISolone ACETATE 40 MG/ML VIAL. ONE; +methylPREDNISolone ACETATE 80 MG/ML VIAL.; -methylPREDNISolone ACETATE 80 MG/ML VIAL. ONE
== END | disposition home or self-care (01) ==
LOC: PNCL 08:59
DX: M51.16 Intervertebral disc disorders with radiculopathy, lumbar region (principal); M96.1 Postlaminectomy syndrome, not elsewhere classified
CPT/HCPCS: 62323; J1030; J1040

== ENCOUNTER → 2017-05-20 | Outpatient (CLI) | payer OTHER ==
[2017-05-20 15:28] LABS: ADD MAN DIFF? NO
[2017-05-20 15:50] LABS: BASO # 0.1 x10^3/uL (0.0-0.2); BASO % 1 % (0-3); EOS # 0.4 x10^3/uL (0.0-0.7); EOS % 3 % (0-3); HEMOGLOBIN 13.7 g/dL (12.0-15.5); LYMPH # 3.7 x10^3/uL (1.0-4.8); LYMPH % 33 % (24-48); MEAN CORPUSCULAR HEMOGLOBIN 33 pg (25-35); MEAN CORPUSCULAR HGB CONC 33 g/dL (31-37); MEAN CORPUSCULAR VOLUME 98 fL (79-100); MONO # 0.6 x10^3/uL (0.0-1.1); MONO % 5 % (0-9); NEUT # 6.4 x10^3uL (1.8-7.7); NEUT % 57 % (31-73); PLATELET COUNT 306 x10^3/uL (140-400); RED CELL DISTRIBUTION WIDTH 12.9 % (11.5-14.5); WHITE BLOOD COUNT 11.3 x10^3/uL (4.0-11.0)
[2017-05-20 15:58] LABS: ALBUMIN 3.4 g/dL (3.4-5.0); ALBUMIN/GLOBULIN RATIO 0.9 (1.0-1.7); ALK PHOS 59 U/L (46-116); ALT (SGPT) 25 U/L (14-59); ANION GAP 13 (6-14); AST (SGOT) 15 U/L (15-37); BLOOD UREA NITROGEN 9 mg/dL (7-20); BUN/CREATININE RATIO 13 (6-20); CALCIUM 8.6 mg/dL (8.5-10.1); CARBON DIOXIDE 23 mmol/L (21-32); CHLORIDE 105 mmol/L (98-107); CREATININE 0.7 mg/dL (0.6-1.0); GFR 95.8; GLUCOSE 108 mg/dL (70-99); POTASSIUM 3.8 mmol/L (3.5-5.1); SODIUM 141 mmol/L (136-145); TOTAL BILIRUBIN 0.2 mg/dL (0.2-1.0)
[2017-05-20 16:09] LABS: INR 0.9 (0.8-1.1); PARTIAL THROMBOPLASTIN TIME 22 SEC (24-38); PROTHROMBIN TIME PATIENT 11.5 SEC (11.7-14.0)
[2017-05-21 00:12] LABS: MRSA BY PCR Negative (Negative)
== END | disposition home or self-care (01) ==
LOC: SURGPAT 14:01
DX: Z01.818 Encounter for other preprocedural examination (principal); M54.5 Low back pain
CPT/HCPCS: 36415; 80053; 85025; 85610; 85730; 87641

== ENCOUNTER 2017-05-21 08:14 | Day surgery (SDC) | payer OTHER ==
[~2017-05-21 08:14] MED LIST changes: +GELATIN SPONGE SIZE 100.; +HYDROmorphone 2 MG/ML VIAL IV; -IOHEXOL 180 MG/ML 10 ML VIAL.; +LIDOCAINE 1% PF 2 ML VIAL. ID; +ONDANSETRON PF 4 MG/2 ML VIAL. IV; +fentaNYL PF VIAL 100 MCG/2 ML VIAL IV; -methylPREDNISolone ACETATE 40 MG/ML VIAL.; -methylPREDNISolone ACETATE 80 MG/ML VIAL.
[2017-05-21] MEDS ORDERED: REMIFENTANIL 2 MG VIAL. IV (09:02)
[2017-05-21] MEDS ORDERED: GLYCOPYRROLATE 1 MG/5 ML VIAL. (09:02)
[2017-05-21] MEDS ORDERED: ROCURONIUM 50 MG/5 ML VIAL. (09:02)
[2017-05-21] MEDS ORDERED: MIDAZOLAM HCL/PF 2 MG/2 ML VIAL. ×2 (09:02→09:35)
[2017-05-21] MEDS ORDERED: PROPOFOL 50 ML IV ×2 (09:03→11:19)
[2017-05-21] MEDS ORDERED: PROPOFOL 20 ML IV (09:03)
[2017-05-21] MEDS ORDERED: LIDOCAINE 2% PF Vial for OR 5 ML VIAL. (09:03)
[2017-05-21] MEDS ORDERED: ONDANSETRON PF 4 MG/2 ML VIAL. (09:03)
[2017-05-21] MEDS ORDERED: DEXAMETHASONE SOD PHOS 20 MG/5 ML VIAL. (09:03)
[2017-05-21] MEDS ORDERED: KETOROLAC 30 MG/ML INJ FOR OR. INJ (09:04)
[2017-05-21] MEDS ORDERED: PHENYLEPHRINE 10 MG/ML VIAL. (09:08)
[2017-05-21 09:19] LABS: NEG OBC UR NEG; POS OBC UR POS; U PREG PATIENT NEGATIVE (NEG)
[2017-05-21] MEDS: IV RINGERS,LACTATED 1000ML 1,000 ML IV ×2 (09:30→13:55)
[2017-05-21] MEDS ORDERED: MINERAL OIL/PETROLATUM,WHITE OPHTH OINT 3.5GM TUBE. (10:09)
[2017-05-21] MEDS: BUPIVACAINE MPF 0.5% 30 ML VIAL. (10:54)
[2017-05-21] MEDS: LIDOCAINE 1%/EPI 1:100,000 20 ML VIAL. (10:54)
[2017-05-21] MEDS: BACITRACIN 50,000 UNIT in IV NORMAL SALINE 1000ML BAG 1,000 ML IRR (10:54)
[2017-05-21] MEDS: THROMBIN TOPICAL 20,000 UNIT SPRAY.SYRN KIT TP (11:15)
[2017-05-21] MEDS ORDERED: DESFLURANE > 120 MINUTES IH (13:15)
[2017-05-21] MEDS: PROCHLORPERAZINE 10 MG/2 ML VIAL. IV ×2 (13:36→13:53)
[2017-05-21] MEDS: MORPHINE SULFATE 2 MG/ML DISP.SYRIN. IV ×2 (13:37→13:55)
[2017-05-21] MEDS: fentaNYL PF VIAL 100 MCG/2 ML VIAL IV ×4 (13:38→14:30)
[2017-05-21] MEDS: oxyCODONE IR 5 MG TABLET PO (14:41)
== END 2017-05-21 16:20 | disposition home or self-care (01) ==
LOC: SURG 08:14
DX: M51.16 Intervertebral disc disorders with radiculopathy, lumbar region (principal); E66.9 Obesity, unspecified; Z68.41 Body mass index [BMI] 40.0-44.9, adult; E11.9 Type 2 diabetes mellitus without complications; F41.9 Anxiety disorder, unspecified; F32.9 Major depressive disorder, single episode, unspecified; F17.200 Nicotine dependence, unspecified, uncomplicated; Z87.39 Personal history of other diseases of the musculoskeletal system and connective tissue; Z86.69 Personal history of other diseases of the nervous system and sense organs; Z90.49 Acquired absence of other specified parts of digestive tract; Z72.0 Tobacco use; Z88.6 Allergy status to analgesic agent
CPT/HCPCS: 63030; 76000; 81025; 97161-GP; G8978-CJ-GP; G8979-CI-GP; G8980-CJ-GP; J0690; J0780; J1100; J1885; J2250; J2270; J2405; J2704; J3010; J3490; J7030; J7120